=== PATIENT | male | born 1955 | race Caucasian/White ===

== ENCOUNTER 2018-09-14 13:46 | Emergency (ER) | payer BC ==
[2018-09-14] MEDS ORDERED: Sucralfate Suspension 1 GM/10 ML Cup PO ONE (14:19)
--- NOTE | 2018-09-14 14:26 | EDM.PDOC ---
ED HPI GENERAL MEDICAL PROBLEM - General Chief Complaint: Gastrointestinal Problem Stated Complaint: SOMTHING STUCK IN THROAT Time Seen by Provider: 09/14/18 13:55 Source of Information: Reports: Patient, RN Notes Reviewed History Limitations: Reports: No Limitations - History of Present Illness INITIAL COMMENTS - FREE TEXT/NARRATIVE: Patient is a 63-year-old male who presents to the ED for the evaluation of something stuck in his throat. He states that roughly 2-1/2 hours ago he was taking a multivitamin when he felt the pill get stuck roughly at the back of his throat and it went down hard. He did try to drink some water to see if this sensation would pass. But he states however the pill or sensation is located now in his mid chest just above his stomach. He denies any shortness of breath or chest pain with this. He states that there is mild pain that he would rate it a 2 out of 10 is having some he states that he came to the ED because he could not swallow anything any longer. He did not eat anything after this sensation, he states that his last food intake was an orange at around 7 AM this morning. He states that his primary care provider is Dr. Nguyen. He notes that roughly 1 year ago he had an upper endoscopy for a similar episode and he states that they didn't find anything at this time. He further notes that sometimes when eating foods he can get this sensation of where he cannot swallow. Epigastric Pain Score (Numeric/FACES): 2 - Related Data Allergies Allergy/AdvReac Type Severity Reaction Status Date / Time No Known Allergies Allergy Verified 09/14/18 13:55 Past Medical History Cardiovascular History: Reports: High Cholesterol Endocrine/Metabolic History: Reports: Diabetes, Type II Social & Family History - Tobacco Use Smoking Status *Q: Current Every Day Smoker Years of Tobacco use: 40 Packs/Tins Daily: 1 - Caffeine Use Caffeine Use: Reports: Coffee - Recreational Drug Use Recreational Drug Use: No ED ROS GENERAL - Review of Systems Review Of Systems: See Below Constitutional: Reports: No Symptoms HEENT: Reports: No Symptoms Respiratory: Reports: No Symptoms Cardiovascular: Reports: No Symptoms Endocrine: Reports: No Symptoms GI/Abdominal: Reports: Abdominal Pain (mid chest above stomach), Difficulty Swallowing. Denies: Nausea, Vomiting : Reports: No Symptoms Musculoskeletal: Reports: No Symptoms Skin: Reports: No Symptoms Neurological: Reports: No Symptoms Psychiatric: Reports: No Symptoms Hematologic/Lymphatic: Reports: No Symptoms Immunologic: Reports: No Symptoms ED EXAM, GI/ABD - Physical Exam Exam: See Below Exam Limited By: No Limitations General Appearance: Alert, WD/WN, Mild Distress (Patient is up at bedside with emesis bag spitting clear thick saliva into the bag about every minute.) Ears: Normal External Exam Nose: Normal Inspection Throat/Mouth: Normal Inspection, Normal Lips, Normal Teeth, Normal Gums, Normal Oropharynx, Normal Voice, No Airway Compromise, Dysphagia (pt can swallow water and a bite of bread, but he did work hard at this.) Respiratory/Chest: No Respiratory Distress, Lungs Clear, Normal Breath Sounds, No Accessory Muscle Use, Chest Non-Tender Cardiovascular: Normal Peripheral Pulses, Regular Rate, Rhythm, No Murmur GI/Abdominal Exam: Normal Bowel Sounds, Soft, Non-Tender, No Distention Extremities: Normal Inspection, Normal Capillary Refill Neurological: Alert, Oriented, Normal Cognition, Normal Gait, No Motor/Sensory Deficits Psychiatric: Normal Affect, Normal Mood Skin Exam: Warm, Dry, Intact, Normal Color, No Rash Course - Vital Signs Last Recorded V/S: Last Vital Signs Temp 97.2 F 09/14/18 13:52 Pulse 72 09/14/18 13:52 Resp 16 09/14/18 13:52 BP 148/65 H 09/14/18 13:52 Pulse Ox 97 09/14/18 13:52 - Orders/Labs/Meds Meds: Medications Discontinued Medications Generic Name Dose Route Start Last Admin Trade Name Freq PRN Reason Stop Dose Admin Al Hydroxide/Mg Hydroxide 30 0 ml 09/14/18 15:01 09/14/18 15:11 ml/ Lidocaine HCl 15 ml PO 09/14/18 15:02 45 ml ONETIME ONE Administration Sucralfate 1 gm 09/14/18 14:19 09/14/18 14:35 Carafate PO 09/14/18 14:20 1 gm ONETIME ONE Administration - Re-Assessments/Exams Free Text/Narrative Re-Assessment/Exam: 09/14/18 14:27 Patient presents to the ED for the evaluation of a pill stuck in his throat. He was able to swallow roughly 4 ounces of water in small sips and one bite of bread in the ED for initial management. He states that after this there is still feeling of a pill being stuck that the end of his esophagus and into the stomach. I have ordered 1 g of oral Carafate to see if this doesn't help his symptoms. 09/14/18 15:03 Pt states that the carafate felt okay going down, but it still does hurt to swallow, I have ordered a GI cocktail to see if this helps. Coincidentally, Dr. Purvis, our surgeon personnel technician was in the ED on a different case and I ran this gentleman's case past her, she does not see any need for an emergent EGD. She requests that the patient wait a little bit longer, and recommends reassurance that this feeling should pass. 09/14/18 16:10 Patient is reassessed at bedside and states that he feels much better after the GI cocktail. We'll recommend that the gentleman start taking omeprazole daily for further antacid relief, and other general recommendations. Departure - Departure Time of Disposition: 16:10 Disposition: Home, Self-Care 01 Condition: Fair Clinical Impression: Dysphagia Qualifiers: Dysphagia type: unspecified Qualified Code(s): R13.10 - Dysphagia, unspecified - Discharge Information *PRESCRIPTION DRUG MONITORING PROGRAM REVIEWED*: No *COPY OF PRESCRIPTION DRUG MONITORING REPORT IN PATIENT GAYE: No Instructions: Dysphagia Referrals: Jay Nguyen MD [Primary Care Provider] - Forms: ED Department Discharge Additional Instructions: You have been evaluated in the ED today for something in your throat. You were given Carafate and a GI cocktail which consists of Maalox and lidocaine for management of this in the ED today. Recommend that you obtain some Gaviscon [id number] please take recommended dosing on the back of the bottle. Recommend that you obtain an antacid like omeprazole and use this daily to see if this doesn't also guard off some of these issues. Recommend that you drink a full 8 ounces of water with pills, and sit upright for at least 30 minutes after taking pills. Please return to the ED if your symptoms change or worsen.
[2018-09-14] MEDS ORDERED: Alum Hydrox/Mag Hydrox/Simeth 30 ML, Lidocaine 2% 15 ML PO ONE ×2 (15:01)
== END 2018-09-14 16:19 | disposition home or self-care (01) ==
LOC: JD.ED 13:46
DX: R13.10 Dysphagia, unspecified (principal); F17.210 Nicotine dependence, cigarettes, uncomplicated; E11.9 Type 2 diabetes mellitus without complications
CPT/HCPCS: 99283; A9270